=== PATIENT | male | born 1975 | race Caucasian/White ===

== ENCOUNTER 2021-08-29 07:28 | Day surgery (SDC) | payer MEDICAID ==
[~2021-08-29] VITALS: Ht 177.8 cm; Wt 180.9 kg
[2021-08-29 07:38] VITALS: BP 139/139
[2021-08-29] MEDS ORDERED: CHOL20004 PO (07:42)
[2021-08-29] MEDS ORDERED: HYDR12.55 PO (07:42)
[2021-08-29] MEDS ORDERED: ALBU1.256 NEB (07:43)
[2021-08-29] MEDS ORDERED: LIDOcaine Viscous 15ml cup ONE (07:56)
[2021-08-29] MEDS ORDERED: fentaNYL/PF 50MCG/1 ML 2ML syringe ONE (07:56)
[2021-08-29] MEDS ORDERED: MIDAZolam 1 MG/ML 5ML VIAL ONE (07:56)
[2021-08-29 08:55] VITALS: BP 138/78
[2021-08-29 09:05] VITALS: BP 139/82
[2021-08-29 09:15] VITALS: BP 123/65
[2021-08-29 09:25] VITALS: BP 113/61
== END 2021-08-29 09:35 | disposition home or self-care (01) ==
LOC: GI LAB 07:28
PROVIDERS: ATTEND Internal Medicine Gastroenterology
DX: Z01.818 Encounter for other preprocedural examination (principal); K21.00 Gastro-esophageal reflux disease with esophagitis, without bleeding; K29.50 Unspecified chronic gastritis without bleeding; I10 Essential (primary) hypertension; E66.01 Morbid (severe) obesity due to excess calories; Z68.43 Body mass index [BMI] 50.0-59.9, adult; Z79.899 Other long term (current) drug therapy
CPT/HCPCS: 43239; 99152; J2250; J3010; J7040; Z7512; 99153; A4620